=== PATIENT | male | born 1985 | race Caucasian/White ===

== ENCOUNTER 2016-09-10 10:55 | Emergency (ER) | payer MEDICAID ==
[2016-09-10 14:04] VITALS: BP 128/74
== END 2016-09-10 14:04 | disposition home or self-care (01) ==
LOC: ED 10:55
DX: F41.0 Panic disorder [episodic paroxysmal anxiety] (principal); F45.8 Other somatoform disorders
CPT/HCPCS: 36600

== ENCOUNTER 2016-10-07 10:19 | Emergency (ER) | payer MEDICAID ==
[~2016-10-07] VITALS: Ht 170.2 cm; Wt 81.6 kg
[2016-10-07 11:22] VITALS: BP 119/75
== END 2016-10-07 12:26 | disposition home or self-care (01) ==
LOC: ED 10:19
DX: S62.512A Displaced fracture of proximal phalanx of left thumb, initial encounter for closed fracture (principal); S02.2XXA Fracture of nasal bones, initial encounter for closed fracture; S09.90XA Unspecified injury of head, initial encounter; F41.1 Generalized anxiety disorder; J45.909 Unspecified asthma, uncomplicated; Z79.899 Other long term (current) drug therapy; W22.8XXA Striking against or struck by other objects, initial encounter; Y93.89 Activity, other specified; Y99.8 Other external cause status; Y92.89 Other specified places as the place of occurrence of the external cause
CPT/HCPCS: A4570

== ENCOUNTER 2016-10-07 16:36 | Emergency (ER) | payer MEDICAID ==
[~2016-10-07] VITALS: Ht 170.2 cm; Wt 81.6 kg
[2016-10-07 18:57] LABS: BASOPHIL % 0.3 % (0-2); PLATELET COUNT 244 x10^3mcL (130-400)
[2016-10-07 19:02] LABS: RED CELL DISTRIBUTION WIDTH 14.7 % (11.5-14.5)
[2016-10-07 19:12] LABS: ALKALINE PHOSPHATASE 68 U/L (46-116); ALT/SGPT 20 U/L (16-63); AST/SGOT 23 U/L (15-37); BILIRUBIN TOTAL 0.3 mg/dL (0.20-1.00); CALCIUM 7.5 mg/dL (8.5-10.1); CHLORIDE SERUM 110 mmol/L (98-107); CREATININE SERUM 0.8 mg/dL (0.7-1.3); GFR1 > 60 mL/min; GLUCOSE SERUM 94 mg/dL (74-106); SODIUM SERUM 145 mmol/L (136-145); TOTAL PROTEIN, SERUM 6.7 g/dL (6.4-8.2)
[2016-10-07 19:16] LABS: ALBUMIN 3.2 g/dL (3.4-5.0)
[2016-10-07 19:17] LABS: POTASSIUM SERUM 2.8 mmol/L (3.5-5.1)
[2016-10-07 21:17] VITALS: BP 108/57
== END 2016-10-07 21:17 | disposition home or self-care (01) ==
LOC: ED 16:36
PROVIDERS: Emergency Medicine
DX: F10.129 Alcohol abuse with intoxication, unspecified (principal); J45.909 Unspecified asthma, uncomplicated; F41.0 Panic disorder [episodic paroxysmal anxiety]; Z86.59 Personal history of other mental and behavioral disorders
CPT/HCPCS: G0480; J3411; J3475; J3490; J7030

== ENCOUNTER 2016-10-14 17:25 | Emergency (ER) | payer MEDICAID ==
[2016-10-14 17:38] VITALS: BP 144/87
== END 2016-10-14 19:13 | disposition home or self-care (01) ==
LOC: ED 17:25
DX: F41.9 Anxiety disorder, unspecified (principal); B35.2 Tinea manuum